=== PATIENT | male | born 1980 | race Two or more races ===

== ENCOUNTER 2018-01-04 14:40 | Emergency (ER) | payer SELFPAY ==
[~2018-01-04] VITALS: Ht 182.9 cm; Wt 104.0 kg
[2018-01-04 14:42] VITALS: BP 154/85
[2018-01-04] MEDS ORDERED: KETOROLAC 60MG/2ML VIAL IM ONE (17:00)
[2018-01-04] MEDS ORDERED: ACETAMINOPHEN 500MG TABLET PO ONE (17:45)
== END 2018-01-04 18:39 | disposition home or self-care (01) ==
LOC: ER 14:40
DX: M79.89 Other specified soft tissue disorders (principal); M79.605 Pain in left leg; I10 Essential (primary) hypertension; L81.8 Other specified disorders of pigmentation; F17.200 Nicotine dependence, unspecified, uncomplicated; Z88.6 Allergy status to analgesic agent; Z85.9 Personal history of malignant neoplasm, unspecified
CPT/HCPCS: 93971; 99284; J1885; Z7610